=== PATIENT | female | born 1970 | race Caucasian/White ===

== ENCOUNTER 2024-11-05 18:42 | Emergency (ER) | payer BC, SELFPAY ==
--- NOTE | ~2024-11-05 | XR_ITS ---
XR chest 2V Ordering provider: Herbert Mcneill MD History: 54 years Female with . chest pain/chest pressure . Comparison: None. FINDINGS: MEDIASTINUM: The cardiac silhouette is not enlarged. LUNGS: No infiltrates, effusions or pneumothorax. OTHER: No free air under the diaphragm. IMPRESSION: No acute cardiopulmonary pathology. Reviewed, dictated and finalized at location A.
--- NOTE | ~2024-11-05 | CT_ITS ---
CT chest abdomen w con Ordering provider: Melvi Abrams MD History: 54 years Female with . chest pain, lipase > normal (not 3x ) . Comparison: None. Technique: CT chest with IV contrast. CT abdomen and pelvis CT abdomen with IV and with oral contrast . Radiation reduction technique utilized.The dose-length product was 818.15 mGy-cm. 100 mL Omnipaque 35 0 was given IV. FINDINGS: CHEST: --VISUALIZED THORACIC INLET: Small nodules in the left lobe of the thyroid. Ultrasound evaluation adv ised. --MEDIASTINUM: Aorta/coronary arteries: Mild atheromatous disease. Heart/other: The heart is not enlarged. Lymph nodes: Prevascular lymph node is seen measuring 2 cm. Precarinal lymph node is seen measuring 1 .5 cm. Otherwise, No mediastinal or hilar adenopathy. --LUNGS: Dependent atelectatic changes. No pulmonary nodules or masses. No infiltrates or effusions. No pneumothorax. --MUSCULOSKELETAL: Soft tissues: The superficial soft tissues are normal. Bones: Normal spine. ABDOMEN/PELVIS: --MUSCULOSKELETAL: Bones: Normal spine. . Superficial soft tissues: The superficial soft tissues are normal. --UPPER ABDOMINAL ORGANS: Liver: Normal. Slightly prominent intrahepatic bile ducts. CBD measures 7 mm. Gallbladder: Distended. Spleen: Normal. Stomach/duodenum: Normal. Pancreas: Normal. Slightly prominent pancreatic duct. Adrenals: Normal. Kidneys: Minimal fullness of the renal pelvis bilaterally. Tiny cysts in the left kidney upper pole. --BOWEL AND MESENTERY: Colon: Mild no evidence of diverticulitis.. Normal appendix. Small Bowel: Normal. No obstruction. Peritoneum/mesentery: No free air or free fluid. No mesenteric lymphadenopathy. --RETROPERITONEUM: Mild atheromatous disease of the abdominal aorta. No retroperitoneal lymphadenop athy. IMPRESSION: CHEST: 1. No acute cardiopulmonary pathology. 2. Multiple thyroid nodules. Ultrasound evaluation advised. 3. Prevascular and precarinal lymph nodes slightly enlarged. ABDOMEN/PELVIS: 1. Grossly distended gallbladder. Clinical correlation and follow-up advised. 2. Slightly prominent pancreatic duct. Follow-up advised. Evaluation of the sphincter of Oddi is adv ised 3. Slightly dilated intrahepatic main ducts. Reviewed, dictated and finalized at location A. IMPRESSION: CHEST: 1. No acute cardiopulmonary pathology. 2. Multiple thyroid nodules. Ultrasound evaluation advised. 3. Prevascular and precarinal lymph nodes slightly enlarged. ABDOMEN/PELVIS: 1. Grossly distended gallbladder. Clinical correlation and follow-up advised. 2. Slightly prominent pancreatic duct. Follow-up advised. Evaluation of the sp hincter of Oddi is advised 3. Slightly dilated intrahepatic main ducts.
--- NOTE | 2024-11-05 18:43 | ECG_ITS ---
Test Date: 2024-11-05 18:47:18 Measurements Intervals [place] Rate: 80 P: -17 [place]: 145 QRS: 7 QRSD: 98 T: 42 QT: 385 QTc: 446 Interpretive Statements SINUS RHYTHM NONSPECIFIC ST & T-WAVE ABNORMALITY- INF/LAT LEADS BORDERLINE ECG No previous ECG available for comparison Electronically Signed On 11-05-2024 18:50:28 CDT by Dimitrios Ureña D.O.
--- OUTSIDE RECORDS SUMMARY | 2024-11-05 18:44 | XMS_ITS | Clinical Summary ---
Author Organization [facility] [place] [address] [place] [address] Care Team Providers Care Materials Recycler Name Role Phone Rebekah Pablo Primary Care Provider +1 [phone] Allergies No known active allergies Medications No known medications Active Problems No known active problems Medical History Medical History Date Comments Hypertension Hyperlipidemia Family History Medical History Relation Name Comments Diabetes Father Hyperlipidemia Father Hypertension Father Heart disease Mother Hyperlipidemia Mother Hypertension Mother Relation Name Status Comments Father Alive Mother (Age 76) Social History Tobacco Use Types Packs/Day Years Used Date Smoking Tobacco: Former Cigarettes Smokeless Tobacco: Never Alcohol Use Standard Drinks/Week Comments Not Currently 0 (1 standard drink = 0.6 oz pur e alcohol) Personal Safety Answer Date Recorded Getting School Help Needed Not on file 08/19 Comments Unknown Sex and Gender Information Value Date Recorded Sex Assigned at Not on file 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 Gender Identity Female 07/01/2020 9:29 AM LAND SURVEYING SURVEY WORKER Sexual Orientation Not on file Obstetrics History Last Filed Vital Signs Vital Sign Reading Time Taken Comments Blood Pressure 148/92 09/02/2020 8:30 AM CDT Pulse 88 09/02/2020 8:30 AM CDT Temperature 36.5 C (97.7 F) 07/16/2020 8:17 AM LAND SURVEYING SURVEY WORKER Respiratory Rate - - Oxygen Saturation 97% 09/02/2020 8:30 AM CDT Inhaled Oxygen Concentration - - Weight 90.3 kg (199 lb) 09/02/2020 8:30 AM CDT Height 165.1 cm (5' 5) 09/02/2020 8:30 AM CDT Body Mass Index 33.12 09/02/2020 8:30 AM CDT Plan of Treatment Not on file Insurance Care Teams Materials Recycler Relationship Specialty Start Date End Date Rebekah Pablo PA PCP - General Physician Adult Family Home Program Manager 06/24/20
--- OUTSIDE RECORDS SUMMARY | 2024-11-05 18:44 | XMS_ITS | Referral Summary ---
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 Gender Identity Female 07/01/2020 9:29 AM BABBITT SPINNER Sexual Orientation Not on file Last Filed Vital Signs Vital Sign Reading Time Taken Comments Blood Pressure 148/92 09/02/2020 8:30 AM CDT Pulse 88 09/02/2020 8:30 AM CDT Temperature 36.5 C (97.7 F) 07/16/2020 8:17 AM BABBITT SPINNER Respiratory Rate - - Oxygen Saturation 97% 09/02/2020 8:30 AM CDT Inhaled Oxygen Concentration - - Weight 90.3 kg (199 lb) 09/02/2020 8:30 AM CDT Height 165.1 cm (5' 5) 09/02/2020 8:30 AM CDT Body Mass Index 33.12 09/02/2020 8:30 AM CDT Plan of Treatment Not on file Insurance [facility] Care Teams Special Makeup Fx Artist Instructor Relationship Specialty Start Date End Date Rebekah Pablo PA PCP - General Physician Sail Lay Out Worker 06/24/20
[2024-11-05 18:50] VITALS: BP 182/88; PULSE 79; RESP 18; TEMP 36.3; O2SAT 100
[2024-11-05 19:11] LABS: Basophils Absolute Auto 0.1 K/mm3 (0.0-0.1); Basophils Percent Auto 0.7 % (0.2-1.2); Eosinophils Absolute Auto 0.2 K/mm3 (0-0.3); Eosinophils Percent Auto 1.4 % (0-4.4); Hematocrit 45.3 % (37.0-47.0); Immature Granulocyte Absolute 0.04 K/mm3 (0.00-0.031); Immature Granulocyte Percent A 0.3 % (0-0.5); Lymphocytes Percent Auto 41.7 % (18.3-44.2); Mean Corpuscular HGB Conc 33.1 g/dl (32-36); Mean Corpuscular Hemoglobin 30.8 pg (26-34); Mean Platelet Volume 9.3 fl (7.4-10.4); Monocytes Percent Auto 7.4 % (2.6-8.5); Neutrophils Absolute Auto 6.4 K/mm3 (1.3-6.7); Neutrophils Percent Auto 48.5 % (45.5-73.1); Platelet Count Result 369 k/mm3 (150-375); Red Blood Count 4.87 M/mm3 (4.2-5.4); Red Cell Distribution Width 11.9 % (11.5-14.5); White Blood Count 13.2 K/mm3 (4.5-10.0)
[2024-11-05 19:20] LABS: Alanine Aminotransferase 26 U/L (6-35); Albumin Level 4.8 g/dL (3.5-5.1); Alkaline Phosphatase 103 U/L (38-126); Anion Gap 8 mmol/L (4-12); Aspartate Amino Transferase 30 U/L (14-36); Bilirubin,Total 0.4 mg/dL (0.2-1.3); Blood Urea Nitrogen 17 mg/dL (7-17); Carbon Dioxide 28 mmol/L (22-30); Chloride 102 mmol/L (98-107); Estimated CRCL calculation 85 ml/min; Estimated Glomerular Filt Rate > 60; Glucose 111 mg/dL (65-110); Lipase 588 U/L (23-300); Potassium 3.3 mmol/L (3.4-5.0); Sodium 138 mmol/L (137-145); Total Protein 7.6 g/dL (6.3-8.2)
[2024-11-05 19:30] LABS: INR 0.9; Prothrombin Time 12.6 Seconds (11.1-14.7)
[2024-11-05 19:31] LABS: Partial Thromboplastin Time 24.3 Seconds (22.3-36.8); Troponin I < 0.012 ng/mL (0.000-0.034)
[2024-11-05] MEDS: ASPIRIN 81 MG CHEWABLE TABLET 324 MG PO (19:40)
--- NOTE | 2024-11-05 19:46 | ED.CHESTPAIN ---
HPI - Chest Pain General Chief Complaint: Chest Pain Stated Complaint: chest pain Time Seen by Provider: 11/05/24 19:21 Source: patient Mode of arrival: ambulatory Limitations: no limitations History of Present Illness HPI narrative: Patient presents with chest pain described as a pressure or a heaviness occurring intermittently. Radiates to neck. Described as a tightness but doesn't last. In the middle of establishing with a new PCP through [facility]. This has never happened before. Saw a carpenter streetcar years ago but not regularly. Symptoms worse when sitting, come and go even at rest. DId not get diaphoretic or short of breath. Nausea but no vomiting. Started occuring while in the nail salon. No cough/hemoptysis. No fevers/chills. No history DVT/PE. Did recently travel 8 hours car ride to [place]. No recent surgery/trauma. Not on hormones. no edema. Cardiac risk factors HTN: Yes HLD: Denies but is on statin DM: No Obese: Yes Smoker: Yes, 1/2 PPD Personal history MN/TIA/CVA: No Fam Hx MN in first degree relative <65yo: Yes Related Data Allergies Allergy/AdvReac Type Severity Reaction Status Date / Time No Known Allergies Allergy Verified 11/05/24 19:36 [facility] Past Medical History Medical History On statin therapy HTN (hypertension) Family History Family History Mother Acute myocardial infarction, Onset Age: 40 Social History Social History Smoking packs per day: 0.5 Smoking cigarettes per day: 10.0 Smoking status: Current every day smoker Occupation/Education: occupation Additional occupation/education comments: employed Exam Narrative: GENERAL: Well-appearing, well-nourished, and in no acute distress. HEAD: Normocephalic, atraumatic. EYES: Non injected, non icteric ENT: Nares clear, no rhinorrhea or epistaxis. Gross auditory acuity intact. NECK: Supple. No meningismus. CHEST: Speaking in full sentences. No respiratory distress. HEART: Regular rate and rhythm. . ABDOMEN: Soft, nondistended. No rigidity or guarding. Not peritoneal. Singletary sign negative. No tenderness throughout. EXTREMITIES: Normal range of motion. No bilateral lower extremity edema. SKIN: Warm, dry, no rash. NEURO: No focal deficits. Alert and oriented. Answering questions. Following commands. Normal speech without aphasia or dysarthria. PSYCH: Normal mood and affect. Course Vital Signs Vital signs: Vital Signs Temperature 97.3 F L 11/05/24 18:50 Pulse Rate 79 11/05/24 18:50 Respiratory Rate 18 11/05/24 18:50 Blood Pressure 182/88 H 11/05/24 18:50 Pulse Oximetry 100 11/05/24 18:50 Oxygen Delivery Room Air 11/05/24 18:50 Temperature 97.3 F L 11/05/24 18:50 Pulse Rate 96 11/06/24 01:03 Respiratory Rate 15 11/06/24 01:03 Blood Pressure 151/94 H 11/06/24 01:03 Pulse Oximetry 97 11/06/24 01:03 Oxygen Delivery Room Air 11/05/24 19:35 MDM - Chest Pain MDM Narrative Medical decision making narrative: Patient presents with intermittent chest pain that started while at the nail salon. In the emergency department she is afebrile with vital signs notable for hypertension. Leukocytosis. Can not apply PERC due to age. Will obtain Dimer as she did travel recently. Very mild hypokalemia. Will replete. Lipase is mildly elevated. Not enough to suggest acute pancreatitis but will obtain CT chest and abdomen with contrast (not CTA as dimer WNL). HEART SCORE History 2 highly suspicious 1 moderately suspicious 0 slightly suspicious History score [address] depression/elevation not due to LBBB, LVH, or digoxin [address] depression but LBBB, LVH, nonspecific repolarization changes 0 normal ECG score 0 Age 2 >/= 65 1 45-64 0 <45 Age score 1 Risk factors (HTN, hypercholesterolemia, DM, obesity with BMI >30, current smoker or cessation </=3mo), positive fam hx with parent or sibling with CVD before age 65, atherosclerotic disease (prior MN, PCI/CABG, CVA/TIA, or peripheral arterial disease) 2 >/= 3 risk factors or history of atherosclerotic dz 1 - 1-2 risk factors 0 no known risk factors Risk factor score 2 Initial Troponin 2 >3 times normal limit 1 1-3 times normal limit 0 less than or equal to normal limit Troponin score 0 Total HEART Score 3 Repeat troponin normal. Patient is reassessed approximately 00:40. We discussed her workup in findings as well as see multiple incidental findings. We discussed that her symptoms may be related to biliary colic although less likely. Urged her to follow-up with primary care whom she is in the process of establishing with someone new as well as urged her to follow-up with cardiology. A referral is given for both if needed. She is given strict emergency department return precautions verifies understanding. Differential Diagnosis Differential diagnosis: Likely stable angina, unstable angina pectoris, atypical chest pain, st elevation myocardial infarction, chest pain, biliary colic and other (Environmental (nail salon fumes); considered PE) Lab Data Attestation: I reviewed the patient's lab results. 11/05/24 18:57 11/05/24 18:57 Labs: Lab Results 11/05/24 11/05/24 11/05/24 Range/Units 18:56 18:57 21:53 WBC 13.2 H (4.5-10.0) K/mm3 RBC 4.87 (4.2-5.4) M/mm3 Hgb 15.0 (12.0-15.0) g/dL Hct 45.3 (37.0-47.0) % MCV 93.0 (80-100) fl MCH 30.8 (26-34) pg MCHC 33.1 (32-36) g/dl RDW 11.9 (11.5-14.5) % Plt Count 369 (150-375) k/mm3 MPV 9.3 (7.4-10.4) fl Immature Gran % (Auto) 0.3 (0-0.5) % Neut % (Auto) 48.5 (45.5-73.1) % Lymph % (Auto) 41.7 (18.3-44.2) % [place] % (Auto) 7.4 (2.6-8.5) % Eos % (Auto) 1.4 (0-4.4) % Baso % (Auto) 0.7 (0.2-1.2) % Lymph # (Auto) 5.50 H (0.9-3.2) K/mm3 [place] # (Auto) 1.0 H (0.1-0.6) K/mm3 Eos # (Auto) 0.2 (0-0.3) K/mm3 Baso # (Auto) 0.1 (0.0-0.1) K/mm3 Abs Immat Gran (auto) 0.04 H (0.00-0.031) K/mm3 Absolute Neuts (auto) 6.4 (1.3-6.7) K/mm3 Absolute Nucleated RBC 0.000 (0.0-0.012) K/mm3 Nucleated RBC % 0.0 (0.0-0.2) % PT 12.6 (11.1-14.7) Seconds INR 0.9 APTT 24.3 (22.3-36.8) Seconds D-Dimer 0.34 (<0.48) ug/mL Sodium 138 (137-145) mmol/L Potassium 3.3 L (3.4-5.0) mmol/L Chloride 102 (98-107) mmol/L Carbon Dioxide 28 (22-30) mmol/L Anion Gap 8 (4-12) mmol/L BUN 17 (7-17) mg/dL Creatinine 0.77 (0.7-1.0) mg/dL Estim Creat Clear Calc 85 ml/min Estimated GFR > 60 (59 - ) Glucose 111 H (65-110) mg/dL Calcium 10.0 (8.4-10.2) mg/dL Magnesium 1.8 (1.6-2.3) mg/dL Total Bilirubin 0.4 (0.2-1.3) mg/dL AST 30 (14-36) U/L ALT 26 (6-35) U/L Alkaline Phosphatase 103 (38-126) U/L Troponin I < 0.012 < 0.012 (0.000-0.034) ng/mL Total Protein 7.6 (6.3-8.2) g/dL Albumin 4.8 (3.5-5.1) g/dL Lipase 588 H (23-300) U/L Imaging Data Radiologist's impression: IMPRESSION: No acute cardiopulmonary pathology. IMPRESSION: CHEST: 1. No acute cardiopulmonary pathology. 2. Multiple thyroid nodules. Ultrasound evaluation advised. 3. Prevascular and precarinal lymph nodes slightly enlarged. ABDOMEN/PELVIS: 1. Grossly distended gallbladder. Clinical correlation and follow-up advised. 2. Slightly prominent pancreatic duct. Follow-up advised. Evaluation of the sphincter of Oddi is advised 3. Slightly dilated intrahepatic main ducts. ECG Data EKG #1: Attestation: I personally reviewed and interpreted this ECG as follows: ECG completion date: 11/05/24 ECG completion time: 18:47 Interpretation: Normal sinus rhythm at a rate of 80 beats per minute. [place] interval 145. QRS 98. QT/QTC 385/421. Good R-wave progression across the precordial leads. No T-wave inversions. Possible ST depression in lead T2 but otherwise normal in contiguous inferior leads 3 and AVF. Discharge Plan Discharge Clinical Impression: Chest pain, Leukocytosis, Hypokalemia, Multiple thyroid nodules, Enlarged lymph nodes, unspecified, Enlarged gallbladder, Abnormality of pancreatic duct, Dilated intrahepatic bile duct Patient Disposition: Home Condition: Stable Instructions: Antibiotic Form, Chest Pain (DC), Biliary Colic (ED), Hypokalemia (ED), Thyroid Nodules (ED) Additional Instructions: As we discussed, Various incidental findings on CT scan: Multiple thyroid nodules. Ultrasound evaluation advised. Distended gallbladder. Clinical correlation and follow-up advised. Slightly prominent pancreatic duct. Follow-up advised. Evaluation of the sphincter of Oddi is advised Slightly dilated intrahepatic main ducts. Your PCP can help arrange this. You stated you are in the process of obtaining a new PCP through [facility] but if you need an alternative, the name of a doctor is listed below. In addition, your workup was negative in your otherwise low (but not NO) risk thus, like we discussed, the recommendation would be for outpatient further workup. Your primary care physician can help arrange this or alternatively the name of a carpenter streetcar is listed below. Do not hesitate to return to the emergency department with any new, worsening, recurring, unmanaged symptoms. Patient Language: Azeri Follow-up/Referrals: Ricardo Mcelroy MD [Physician] - (cardiology) PHYSICIAN,BARREL REAMER [Primary Care Provider] - Mia Adkins DO [Physician] - (PCP) Stand Alone Forms: Work/School Release IP Time of Disposition: 00:48
--- NOTE | 2024-11-05 20:16 | PC.NURSE ---
lab called to add on mag and d dimer
--- OUTSIDE RECORDS SUMMARY | 2024-11-05 20:22 | XMS_ITS | Referral Summary ---
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 Gender Identity Female 07/01/2020 9:29 AM MARKETING AUTOMATION ANALYST Sexual Orientation Not on file Last Filed Vital Signs Vital Sign Reading Time Taken Comments Blood Pressure 148/92 09/02/2020 8:30 AM CDT Pulse 88 09/02/2020 8:30 AM CDT Temperature 36.5 C (97.7 F) 07/16/2020 8:17 AM MARKETING AUTOMATION ANALYST Respiratory Rate - - Oxygen Saturation 97% 09/02/2020 8:30 AM CDT Inhaled Oxygen Concentration - - Weight 90.3 kg (199 lb) 09/02/2020 8:30 AM CDT Height 165.1 cm (5' 5) 09/02/2020 8:30 AM CDT Body Mass Index 33.12 09/02/2020 8:30 AM CDT Plan of Treatment Not on file Insurance [employer] [facility] Care Teams Floor Supervisor Relationship Specialty Start Date End Date Rebekah Pablo PA PCP - General Physician Cardiothoracic Physiotherapist 06/24/20
--- OUTSIDE RECORDS SUMMARY | 2024-11-05 20:22 | XMS_ITS | Clinical Summary ---
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 Gender Identity Female 07/01/2020 9:29 AM MACHINE LACER Sexual Orientation Not on file Obstetrics History Last Filed Vital Signs Vital Sign Reading Time Taken Comments Blood Pressure 148/92 09/02/2020 8:30 AM CDT Pulse 88 09/02/2020 8:30 AM CDT Temperature 36.5 C (97.7 F) 07/16/2020 8:17 AM MACHINE LACER Respiratory Rate - - Oxygen Saturation 97% 09/02/2020 8:30 AM CDT Inhaled Oxygen Concentration - - Weight 90.3 kg (199 lb) 09/02/2020 8:30 AM CDT Height 165.1 cm (5' 5) 09/02/2020 8:30 AM CDT Body Mass Index 33.12 09/02/2020 8:30 AM CDT Plan of Treatment Not on file Insurance Care Teams Rfid Manager Relationship Specialty Start Date End Date Rebekah Pablo PA PCP - General Physician Cylinder Press Feeder 06/24/20
[2024-11-05 20:33] LABS: D Dimer 0.34 ug/mL (<0.48)
[2024-11-05] MEDS: POTASSIUM BICARBONATE 25 MEQ TABEF PO (21:22)
[2024-11-05 21:23] VITALS: BP 142/93; PULSE 73; RESP 16; O2SAT 95
[2024-11-05 21:31] LABS: Magnesium 1.8 mg/dL (1.6-2.3)
--- NOTE | 2024-11-05 21:52 | ECG_ITS ---
Test Date: 2024-11-05 22:35:29 Measurements Intervals [place] Rate: 83 P: -19 [place]: 156 QRS: 27 QRSD: 92 T: 31 QT: 379 QTc: 447 Interpretive Statements SINUS RHYTHM LOW QRS VOLTAGE IN PRECORDIAL LEADS BORDERLINE ST-T WAVE ABNORMALITY- INFERIOR LEADS BASELINE ARTIFACT- I, II, III, AVR, AVL, AVF BORDERLINE ECG Compared to ECG 11/05/2024 18:47:18 NO SIGNIFICANT CHANGE Electronically Signed On 11-06-2024 06:24:11 CDT by Dimitrios Ureña D.O.
[2024-11-05 22:23] LABS: Troponin I < 0.012 ng/mL (0.000-0.034)
[2024-11-06] MEDS: BELLADONNA ALK/PHENOB ELIX 10 ML, MAG HYDROX/ALUMINUM HYD/SIMETH 30 ML, LIDOCAINE 2% VI... PO (00:54)
[2024-11-06 01:03] VITALS: BP 151/94; PULSE 96; RESP 15; O2SAT 97
== END 2024-11-06 01:05 | disposition home or self-care (01) ==
PROVIDERS: Emergency Medicine; Emergency Provider Student in an Organized Health Care Education/Training Program
DX: R07.89 Other chest pain (principal); E04.1 Nontoxic single thyroid nodule; E87.6 Hypokalemia; K86.89 Other specified diseases of pancreas; K83.9 Disease of biliary tract, unspecified; R59.9 Enlarged lymph nodes, unspecified; D72.829 Elevated white blood cell count, unspecified; I10 Essential (primary) hypertension; F17.210 Nicotine dependence, cigarettes, uncomplicated; R94.31 Abnormal electrocardiogram [ECG] [EKG]
CPT/HCPCS: 36415; 71046; 71260; 74160; 80053; 83690; 83735; 84484; 85025; 85380; 85610; 85730; 93005; 99284; A9270; Q9967